=== PATIENT | male | born 1955 | race Caucasian/White ===

== ENCOUNTER 2017-04-04 20:30 | Emergency (ER) | payer MEDICAID, MEDICARE ==
[2017-04-04] MEDS ORDERED: HYDROCODONE/APAP 10/325 TABLET PO ONE (20:40)
[2017-04-04] MEDS ORDERED: METHYLPREDNISOLONE PF 125MG/VIAL IM ONE (20:40)
--- NOTE | 2017-04-04 20:44 | Emergency Department Record ---
History of Present Illness - General Chief complaint: Extremity Problem Stated complaint: R ARM PAIN Time Seen by Provider: 04/04/17 20:35 Source: Patient, Family Mode of Arrival: Ambulatory Limitations: No limitations - History of Present Illness Initial comments: 61 yo male presents with right elbow pain after shoveling snow. The onset was this morning. He has pain with ROM of the right elbow. No swelling. No direct trauma. No redness or abnormal warmth or coolness. No history of similar issues with the right elbow. No obvious swelling. 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 Complaint: Joint pain -: Hour(s) (14) Location: Right History of Same: No -: Yes Arthralgia Radiation: Other (elbow lateral) Quality: Aching Consistency: Constant Improves with: Immobilization Worsens with: Palpation, Weight bearing, Other (ROM) Associated Symptoms: Denies other symptoms - Related Data Home Medications Medication Instructions Recorded Confirmed Last Taken Gabapentin [Neurontin] 300 mg PO BID 04/04/17 04/04/17 Unknown Hydrocodone/Acetaminophen [[place] 1 each PO Q8H 04/04/17 04/04/17 Unknown 5-325 Tablet] Isosorbide Mononitrate [Imdur] 30 mg PO DAILY 04/04/17 04/04/17 Unknown Metoprolol Tartrate [Metoprolol 25 g PO DAILY 04/04/17 04/04/17 Unknown Tartrate] Pravastatin Sodium [Pravachol] 80 mg PO DAILY 04/04/17 04/04/17 Unknown Previous Rx's Medication Instructions Recorded Hydrocodone/Acetaminophen [[place] 1 each PO Q8H #20 tablet 04/04/17 5-325 Tablet] Allergies Allergy/AdvReac Type Severity Reaction Status Date / Time cough syrup Allergy HIVES Uncoded 04/04/17 20:38 Review of Systems Constitutional: Denies: Chills, Fever, Malaise, Weakness Eyes: Denies: Eye discharge ENT: Denies: Congestion, Throat pain Respiratory: Denies: Cough, Dyspnea, Hemoptysis, Wheezes Cardiovascular: Denies: Chest pain, Syncope Endocrine: Denies: Fatigue Gastrointestinal: Denies: Abdominal pain, Diarrhea, Nausea, Vomiting Genitourinary: Denies: Dysuria, Frequency, Hematuria Musculoskeletal: Reports: Arthralgia Skin: Denies: Bruising, Change in color, Rash Neurological: Denies: Headache, Numbness, Weakness Psychiatric: Denies: Anxiety Hematological/Lymphatic: Denies: Blood Clots, Easy bleeding, Easy bruising, Swollen glands Physical Exam - General General Appearance: Alert, Oriented x3, Cooperative, No acute distress Limitations: No limitations - Head Head exam: Normal inspection - Eye Eye exam: Normal appearance - ENT ENT exam: Normal exam Ear exam: Normal external inspection Nasal Exam: Normal inspection Mouth exam: Normal external inspection - Neck Neck exam: Normal inspection, Full ROM - Respiratory Respiratory exam: Normal lung sounds bilaterally. negative: Respiratory distress - Cardiovascular Cardiovascular Exam: Regular rate, Normal rhythm, Normal heart sounds Peripheral Pulses: 2+: Radial (R) - Rectal Rectal exam: Deferred - exam: Deferred - Extremities Extremities exam: Normal inspection, Full ROM, Normal capillary refill, Tenderness. negative: Joint swelling Image of Full Body: 1 - tenderness over the lateral epicondyle, no warmth, redness or swelling. Radial pulse is intact at +2, no wrist tenderness or pain. the wrist has full ROM with full gut dropper, Elbow with full ROM but associated with pain, non tender medial elbow - Back Back exam: Reports: Full ROM - Neurological Neurological exam: Alert, Normal gait, Oriented X3. negative: Motor sensory deficit - Psychiatric Psychiatric exam: Normal affect, Normal mood. negative: Agitated, Anxious - Skin Skin exam: Dry, Intact, Normal color, Warm Course - Reevaluation(s) Reevaluation #1: 04/04/17 21:09 The XR demonstrates advanced degenerative changes he was given a copy of his XR for outpatient follow up. 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, right elbow Disposition: Home, Self-Care Condition: (1) Good Instructions: Osteoarthritis (ED), Tendinitis (ED) Additional Instructions: Ice the area of pain and if swelling Use the sling for comfort Call your doctor for close follow Call your doctor to refer you again to your orthopedist you saw for your left elbow in the past Prescriptions: Hydrocodone/Acetaminophen [[place] 5-325 Tablet] 1 each PO Q8H #20 tablet Forms: Patient Portal Access Time of Disposition: 21:07 Quality - Quality Measures Quality Measures: N/A - Blood Pressure Screening Does Patient Have Any of the Following: No Blood Pressure Classification: Pre-Hypertensive BP Reading Systolic Measurement: 136 Diastolic Measurement: 88 Screening for High Blood Pressure: < Pre-Hypertensive BP, F/U Documented > [ [id number]] Pre-Hypertensive Follow-up Interventions: Referral to alternative/primary care provider.
[2017-04-04] MEDS ORDERED: HYDROCODONE/APAP 5/325MG TABLET PO ONE (21:29)
--- NOTE | 2017-04-05 20:10 | RADIOLOGY REPORT ---
EXAM: ELBOW, RIGHT 3 VIEWS HISTORY: ELBOW PAIN. TECHNIQUE: Three views of the right elbow. COMPARISON: None. ENCOUNTER: Initial. FINDINGS: No radiographic evidence for an acute fracture or dislocation. However, there are advanced degenerative changes of the elbow with multiple loose bodies and extensive bony spur formation. No definitive joint effusion. IMPRESSION: ADVANCED DEGENERATIVE CHANGES WITHOUT RADIOGRAPHIC EVIDENCE FOR ACUTE ABNORMALITY. JOB NUMBER: [id number] MTDD
== END 2017-04-04 21:34 | disposition home or self-care (01) ==
LOC: ER 20:30
DX: M19.021 Primary osteoarthritis, right elbow (principal); M77.11 Lateral epicondylitis, right elbow
CPT/HCPCS: 99283; 96372; 99284; 73080; J3490; J2930